=== PATIENT | female | born 1990 | race Two or more races ===

== ENCOUNTER 2016-12-14 16:50 | Outpatient (CLI) | payer MEDICAID ==
[~2016-12-14] VITALS: Ht 152.4 cm; Wt 88.2 kg
[~2016-12-14 16:50] MED LIST: NONE PER PT; PNV91TAB3 PO
[2016-12-14 17:03] VITALS: BP 109/67
== END 2016-12-14 17:55 | disposition home or self-care (01) ==
LOC: LDOP 16:50
PROVIDERS: ATTEND Student in an Organized Health Care Education/Training Program
DX: O36.8130 Decreased fetal movements, third trimester, not applicable or unspecified (principal); Z3A.36 36 weeks gestation of pregnancy
CPT/HCPCS: 59025; 99211; G0463

== ENCOUNTER 2016-12-26 05:59 | Outpatient (CLI) | payer MEDICAID ==
[~2016-12-26] VITALS: Ht 152.4 cm; Wt 88.2 kg
[2016-12-26 06:06] VITALS: BP 139/82
== END 2016-12-26 09:13 | disposition home or self-care (01) ==
LOC: LDOP 05:59
PROVIDERS: ATTEND Student in an Organized Health Care Education/Training Program
DX: O26.893 Other specified pregnancy related conditions, third trimester (principal); O62.9 Abnormality of forces of labor, unspecified; O21.9 Vomiting of pregnancy, unspecified; R10.9 Unspecified abdominal pain; Z3A.38 38 weeks gestation of pregnancy
CPT/HCPCS: 59025; 99211; G0463

== ENCOUNTER 2016-12-29 04:57 | Inpatient (IN) | payer MEDICAID ==
[~2016-12-29] VITALS: Ht 152.4 cm; Wt 90.5 kg
[2016-12-29] MEDS ORDERED: D5%-LACTATED RINGERS 1,000 ML IV SCH (05:05)
[2016-12-29] MEDS ORDERED: OXYTOCIN 30U/ 0.9% NaCL 500ML 500 ML IV PRN (05:05)
[2016-12-29] MEDS ORDERED: OXYTOCIN 30U/ 0.9% NaCL 500ML 500 ML IV ONE (05:05)
[2016-12-29] MEDS ORDERED: FENTANYL PF 100 MCG/2ML IVPush PRN (05:30)
[2016-12-29] MEDS ORDERED: CALCIUM CARBONATE 500 MG TAB.CHEW PO PRN ×2 (05:30→14:00)
[2016-12-29] MEDS ORDERED: FENTANYL PF 100 MCG/2ML IV PRN (05:30)
[2016-12-29] MEDS ORDERED: ONDANSETRON 2MG/ML, 2ML IVPush PRN (05:30)
[2016-12-29 05:51] LABS: HEMATOCRIT 37.3 % (34.6-47.8); HEMOGLOBIN 12.4 g/dL (11.7-16.4); WHITE BLOOD COUNT 8.9 x10^3/uL (3.4-10)
[2016-12-29] MEDS ORDERED: NEWBORN KIT ONE (06:00)
[2016-12-29 06:11] VITALS: BP 121/75
[2016-12-29] MEDS: LACTATED RINGERS 1,000 ML IV SCH ×2 (08:25→09:44)
[2016-12-29] MEDS ORDERED: FENTANYL/BUPIV./NS/PF 250 ML EPIDCONT ONE (09:31)
[2016-12-29] MEDS ORDERED: LIDOCAINE/PF 1.5%-EPI 1:200K, 30ML ONE (09:31)
[2016-12-29] MEDS ORDERED: FENTANYL/BUPIV./NS/PF 250 ML EPIDCONT SCH (11:13)
[2016-12-29] MEDS ORDERED: LACTATED RINGERS 1,000 ML IV SCH (11:13)
[2016-12-29] MEDS ORDERED: LACTATED RINGERS 1,000 ML IVBOLUS PRN (11:30)
[2016-12-29] MEDS ORDERED: LIDOCAINE 1%, 20ML ONE (12:05)
[2016-12-29] MEDS ORDERED: METHYLERGONOVINE 0.2 MG/ML IM PRN (14:00)
[2016-12-29] MEDS ORDERED: CARBOPROST TROMETHAMINE 250 MCG/ML, 1ML IM PRN (14:00)
[2016-12-29] MEDS ORDERED: MISOPROSTOL 200 MCG TABLET PR PRN (14:00)
[2016-12-29] MEDS ORDERED: ONDANSETRON 2MG/ML, 2ML IV PRN (14:00)
[2016-12-29] MEDS ORDERED: OXYTOCIN 30U/ 0.9% NaCL 500ML 500 ML ONE (14:49)
[2016-12-29] MEDS ORDERED: IBUPROFEN 600 MG TABLET ONE (14:49)
[2016-12-29] MEDS: IBUPROFEN 600 MG TABLET PO PRN ×2 (14:56→22:52)
[2016-12-29] MEDS: OXYTOCIN 30U/ 0.9% NaCL 500ML 500 ML IV SCH ×3 (14:56→23:42)
[2016-12-29 16:10] VITALS: BP 128/79
[2016-12-29] MEDS: HYDROcodone/APAP 5/325 TABLET PO PRN ×2 (18:03→22:52)
[2016-12-29 20:10] VITALS: BP 134/83
[2016-12-29 21:12] LABS: HEMATOCRIT 32.9 % (34.6-47.8); HEMOGLOBIN 11.1 g/dL (11.7-16.4); WHITE BLOOD COUNT 11.1 x10^3/uL (3.4-10)
[2016-12-29] MEDS: DOCUSATE 100 MG CAPSULE PO PRN (22:52)
[2016-12-30 00:05] VITALS: BP 116/75
[2016-12-30 04:00] VITALS: BP 112/67
[2016-12-30] MEDS: HYDROcodone/APAP 5/325 TABLET PO PRN ×3 (04:06→13:36)
[2016-12-30 07:32] VITALS: BP 121/79
[2016-12-30] MEDS ORDERED: PRENATAL VIT/IRON/FA 1 EACH TABLET PO SCH (09:00)
[2016-12-30] MEDS: DOCUSATE 100 MG CAPSULE PO PRN (09:34)
[2016-12-30] MEDS: IBUPROFEN 600 MG TABLET PO PRN (09:34)
[2016-12-30] MEDS ORDERED: DOCU-131 PO (10:55)
[2016-12-30] MEDS ORDERED: IBUP-1223 PO (10:55)
[2016-12-30] MEDS ORDERED: HYDR-3240 PO (10:56)
== END 2016-12-30 15:15 | disposition home or self-care (01) | DRG 775 ==
LOC: LDIP 04:57 → 2NW 15:49
PROVIDERS: ADMIT Student in an Organized Health Care Education/Training Program; ATTEND Student in an Organized Health Care Education/Training Program
PROC: 3E0S3CZ (ICD-10-PCS; principal; 2016-12-29)
PROC: 10E0XZZ Delivery of Products of Conception, External Approach (ICD-10-PCS; 2016-12-29)
PROC: 0KQM0ZZ Repair Perineum Muscle, Open Approach (ICD-10-PCS; 2016-12-29)
PROC: 00HU33Z Insertion of Infusion Device into Spinal Canal, Percutaneous Approach (ICD-10-PCS; 2016-12-29)
DX: O36.8130 Decreased fetal movements, third trimester, not applicable or unspecified (principal); O69.81X0 Labor and delivery complicated by cord around neck, without compression, not applicable or unspecified; O70.1 Second degree perineal laceration during delivery; Z37.0 Single live birth; Z3A.39 39 weeks gestation of pregnancy; Z83.3 Family history of diabetes mellitus; Z82.49 Family history of ischemic heart disease and other diseases of the circulatory system
CPT/HCPCS: 36415; 85025; 86850; 86900; 93005; J2590; J7120; J7121

== ENCOUNTER 2017-01-05 14:53 | Inpatient (IN) | payer MEDICAID ==
[~2017-01-05] VITALS: Ht 152.4 cm; Wt 84.0 kg
[~2017-01-05 14:53] MED LIST changes: +DOCU-131 PO; +HYDR-3240 PO; +IBUP-1223 PO
[2017-01-05] MEDS ORDERED: IBUPROFEN 600 MG TABLET PO PRN (15:30)
[2017-01-05] MEDS ORDERED: LABETALOL 200 MG TABLET ONE (15:34)
[2017-01-05 15:37] LABS: HEMATOCRIT 39.6 % (34.6-47.8); WHITE BLOOD COUNT 9.9 x10^3/uL (3.4-10)
[2017-01-05 15:45] LABS: PATH.CAST-FLAG NOT PRESENT; SPERM-FLAG NOT PRESENT; SRC-FLAG NOT PRESENT; XTAL-FLAG NOT PRESENT; YLC-FLAG NOT PRESENT
[2017-01-05 15:49] LABS: ASPARTATE AMINO TRANSFERASE 25 U/L (15-37); BLOOD UREA NITROGEN 12 mg/dL (7-18)
[2017-01-05] MEDS ORDERED: LABETALOL 200 MG TABLET PO SCH (16:00)
[2017-01-05] MEDS ORDERED: niFEDipine ER 30 MG TABLET.ER PO ONE (17:00)
[2017-01-05] MEDS ORDERED: MAGNESIUM SULF. PMX 20GM/500ML 500 ML IV ONE (17:35)
[2017-01-05] MEDS ORDERED: MAGNESIUM SULFATE PMX 4GM/100M 100 ML ONE (17:35)
[2017-01-05] MEDS ORDERED: LACTATED RINGERS 1,000 ML IV PRN (17:37)
[2017-01-05] MEDS ORDERED: hydrALAzine 20 MG/ML, 1ML ONE (17:45)
[2017-01-05] MEDS ORDERED: PLEASE ENTER HEIGHT AND WEIGHT MC SCH (18:00)
[2017-01-05] MEDS ORDERED: MAGNESIUM SULFATE PMX 4GM/100M 100 ML IVPB ONE (18:00)
[2017-01-05] MEDS ORDERED: hydrALAzine 20 MG/ML, 1ML IV ONE (18:00)
[2017-01-05] MEDS: MAGNESIUM SULF. PMX 20GM/500ML 500 ML IV PRN (18:14)
[2017-01-06 00:32] LABS: PATH.CAST-FLAG NOT PRESENT; SPERM-FLAG NOT PRESENT; SRC-FLAG NOT PRESENT; XTAL-FLAG NOT PRESENT; YLC-FLAG NOT PRESENT
[2017-01-06] MEDS ORDERED: MAGNESIUM SULF. PMX 20GM/500ML 500 ML IV ONE (02:16)
[2017-01-06] MEDS: MAGNESIUM SULF. PMX 20GM/500ML 500 ML IV PRN (02:19)
[2017-01-06 05:51] LABS: HEMOGLOBIN 12.6 g/dL (11.7-16.4); WHITE BLOOD COUNT 8.9 x10^3/uL (3.4-10)
[2017-01-06 05:56] LABS: ASPARTATE AMINO TRANSFERASE 32 U/L (15-37); BLOOD UREA NITROGEN 11 mg/dL (7-18)
[2017-01-06 07:32] VITALS: BP 122/62
== END 2017-01-06 11:16 | disposition home or self-care (01) | DRG 776 ==
LOC: LDOP 14:53 → LDIP 17:37
PROVIDERS: ADMIT Obstetrics & Gynecology; ATTEND Obstetrics & Gynecology
DX: O14.95 Unspecified pre-eclampsia, complicating the puerperium (principal); Z82.49 Family history of ischemic heart disease and other diseases of the circulatory system; Z83.3 Family history of diabetes mellitus
CPT/HCPCS: 36415; 80053; 81001; 82570; 83735; 84156; 84550; 85025; J0360; J3475